=== PATIENT | female | born 2000 | race Caucasian/White ===

== ENCOUNTER 2022-11-14 09:43 | Outpatient (RCR) | payer OTHER, SELFPAY ==
--- NOTE | 2022-11-17 09:22 | HO.PHP ---
This typewriter ribbon winder met with Patient on 11/14/2022 for the purpose of completing an intake assessment for [facility]. Pt carries a diagnosis of Major depressive disorder and alcohol use disorder. During the intake, the Patient disclosed that she has been actively drinking alcohol and that she drank yesterday 11/13/2022, This typewriter ribbon winder consulted with the PHP team regarding active alcohol use and admission to [facility] . It was decided that Pt cannot start PHP at this time and it was recommended for her to detox first then she can return to [facility] once she completed detox. Pt accepted this decision and detox treatment information was provided to the patient.
== END 2022-11-14 23:59 | disposition home or self-care (01) ==
LOC: HO.PHPA 09:43
PROVIDERS: Visit Provider Psychiatry & Neurology Psychiatry
DX: F33.2 Major depressive disorder, recurrent severe without psychotic features (principal); F41.1 Generalized anxiety disorder; F10.20 Alcohol dependence, uncomplicated
CPT/HCPCS: 90791